=== PATIENT | female | born 1955 | race Hispanic/Latino ===

== ENCOUNTER 2017-02-13 06:30 | Day surgery (SDC) | payer BC ==
[~2017-02-13] VITALS: Ht 165.1 cm; Wt 77.1 kg
[~2017-02-13 06:30] MED LIST: IBUPROFEN600 MG PO
--- NOTE | 2017-02-13 09:55 | NUR ---
02/13/17 0955 Roseann Salazar 0937 TO PACU, ORAL AIRWAY IN PLACE 0945 SLING IMMOBILIZER PLACED PER DR INSTRUCTIONS 0948 ORAL AIRWAY REMOVED. AWAKED TO VOICE. DENIES PAIN OR NAUSEA 0955 HOB ELEVATED. CONT TO DENY C/O
[2017-02-13] MEDS ORDERED: HYDROCODON-ACE1 EA11 PO (10:11)
[2017-02-13] MEDS ORDERED: NORCO 7.5-3251 EACH PO (11:03)
--- NOTE | 2017-02-13 11:59 | NUR ---
PT WOULDNT EAT ANYTHING. DRANK WATER. AMB, VOIDED. DAUGHTER HERE AND INSTRUCTED TO GO HOME.
--- NOTE | 2017-02-13 14:34 | NUR ---
PT RESTING IN BED-ALERT AND ORIENTED. I FOUND HER TO BE PLEASANT, AND SEEMED COMFORTABLE WITH MY PRESENCE. SHE MENTIONED HER DAUGHTER WOULD BE BY SOON AND WILL TAKE HER HOME. SHE MENTIONED THAT HER ROLL ON MAN, [place] FAMILY AND OTHER FRIENDS ARE PRAYING FOR HER. WILL FOLLOW NEEDED
--- NOTE | 2017-02-20 07:01 | OR ---
[facility] [address], [place] [address] Signed DATE OF OPERATION: 02/13/2017 SURGEON: Lety Short MD PREOPERATIVE DIAGNOSIS: Rotator cuff tear, right shoulder. POSTOPERATIVE DIAGNOSIS: Rotator cuff tear, right shoulder. PROCEDURE PERFORMED: Right shoulder arthroscopy with rotator cuff repair, arthroscopic. SURGEON: Lety Short MD. ASSISTANTS: 1. Rivka Wheeler PA-C. 2. DAWIT Clemens. Rivka was present for the entire surgery and was critical for positioning, arm holding, and wound closure. ANESTHESIA: General with interscalene block. BLOOD LOSS: Minimal. IMPLANTS: Two 4.75 SwiveLock anchors with FiberTape. BRIEF HISTORY: Sonja is a 62-year-old female, who injured her shoulder at work, suffered a rotator cuff tear. Risks, benefits and alternatives of operative treatment were discussed with her and she elected to proceed. DESCRIPTION OF PROCEDURE: Once consent was obtained, she was taken to the operating room. After adequate anesthesia was placed in a beach chair position. All downside pressure points were well-padded. The shoulder was prepped and draped in standard sterile fashion, injected Electronically Signed By: LETY SHORT MD 02/20/17 0701 PATIENT NAME: SONJA MINER OPERATIVE REPORT DATE OF : 59 PHYSICIAN: LETY SHORT MD REPORT #: [id number] REPORT IS CONFIDENTIAL AND NOT TO BE RELEASED WITHOUT AUTHORIZATION [facility] [address], [place] [address] Signed with 15 mL of 0.25% Marcaine with epinephrine as was the subacromial space. The standard posterior portal was made and the scope was introduced in the shoulder. The shoulder showed no significant synovitis. The glenohumeral surfaces were intact. The biceps, biceps anchor and labrum were intact. The subscapularis was intact. There is a 1.25 cm tear in the supraspinatus originating just behind the biceps tendon. This was retracted just a little bit. The remainder of the rotator cuff was intact. DESCRIPTION OF OPERATION: Standard diagnostic arthroscopy was undertaken as noted above. The scope was then withdrawn, placed in subacromial space and the anterolateral and straight lateral portals were made and the subacromial bursa was removed using a combination of the Mitek VAPR and shaver. Rotator cuff tear was easily identified and was debrided. The footprint on the tuberosity was debrided as well. The two sutures were then placed in an inverted mattress configuration through the rotator cuff and brought out separate portals. The first anchor was placed posteriorly with the posterior set of sutures. It was impacted until it was well-seated and threaded into the bone. The second anchor was placed anteriorly and placed similarly. Excellent apposition of the cuff to the footprint was obtained. The shoulder was then taken through range of motion and found to be stable with no gross motion at the repair site. The sutures were all cut and removed. Little bit of inflammation anteriorly was then removed using the Mitek VAPR. Scope was withdrawn. Portals were closed with 3-0 nylon, dressed with a dressing. She was awakened and taken to recovery room in satisfactory condition. All sponge, needle, and instrument counts were correct. Lety Short MD BA/STACY /[id number] Electronically Signed By: LETY SHORT MD 02/20/17 0701 PATIENT NAME: SONJA MINER OPERATIVE REPORT DATE OF : 59 PHYSICIAN: LETY SHORT MD REPORT #: [id number] REPORT IS CONFIDENTIAL AND NOT TO BE RELEASED WITHOUT AUTHORIZATION [facility] [address] [place] [id number] Signed cc: Dr. Ocasio Electronically Signed By: LETY SHORT MD 02/20/17 0701 PATIENT NAME: SONJA MINER OPERATIVE REPORT DATE OF : 59 PHYSICIAN: LETY SHORT MD REPORT #: [id number] REPORT IS CONFIDENTIAL AND NOT TO BE RELEASED WITHOUT AUTHORIZATION
== END 2017-02-13 11:45 | disposition home or self-care (01) ==
LOC: OPS 06:30 → DS 06:30 → OPS 08:15
PROVIDERS: Specialist
PROC: 0LQ14ZZ Repair Right Shoulder Tendon, Percutaneous Endoscopic Approach (ICD-10-PCS; principal; 2017-02-13 08:15)
DX: M75.121 Complete rotator cuff tear or rupture of right shoulder, not specified as traumatic (principal)
CPT/HCPCS: 01630; 64415; 76942; C1713; J0330; J0690; J1100; J1885; J2250; J2370; J2704; J2795; J3010; J7120